=== PATIENT | female | born 1970 | race Caucasian/White ===

== ENCOUNTER → 2017-05-14 11:30 | Outpatient (CLI) | payer SELFPAY ==
[2017-05-17 14:28] LABS: HPV Reflexed? NOT INDICATED
== END ==
PROVIDERS: Visit Provider Obstetrics & Gynecology
DX: Z12.4 Encounter for screening for malignant neoplasm of cervix (principal)
CPT/HCPCS: 88175; G0145

== ENCOUNTER → 2019-07-22 08:58 | Outpatient (CLI) | payer SELFPAY ==
[2019-07-24 20:41] LABS: HPV Reflexed? NOT INDICATED
== END ==
PROVIDERS: Referring Provider Obstetrics & Gynecology; Visit Provider Obstetrics & Gynecology
DX: Z12.4 Encounter for screening for malignant neoplasm of cervix (principal)
CPT/HCPCS: 88175; G0145

== ENCOUNTER → 2019-12-03 15:30 | Outpatient (CLI) | payer SELFPAY, OTHER ==
--- NOTE | 2019-12-03 15:31 | MRI_ITS ---
STUDY: MRI CERVICAL SPINE WITHOUT CONTRAST REASON FOR EXAM: Female, 49 years old. neck pain and stiffness pain and tingling into both arms TECHNIQUE: Standardized fat and water weighted pulse sequences were obtained in the sagittal and axial planes. COMPARISON: Cervical spine films 11/23/2019 FINDINGS: Normal foramen magnum and brainstem-cervical cord junction. Normal craniovertebral junction. Normal anterior atlantoaxial articulation. Normal odontoid process. Normal cervical lordosis. Normal vertebral bodies and posterior osseous elements. C2-3: Normal endplates. Normal disc height, signal and morphology. Normal central canal and intervertebral neural foramina. C3-4: Normal endplates. Normal disc height, signal and morphology. Normal central canal and intervertebral neural foramina. C4-5: Normal endplates. Normal disc height, signal and morphology. Normal central canal and intervertebral neural foramina. C5-6: Normal endplates. Normal disc height, signal and minor bulging of the disc with small right posterolateral/foraminal disc protrusion. Mild narrowing of the central canal with mild impingement upon ventral surface of the cord. Severe right neuroforaminal stenosis and moderate stenosis on the left secondary to disc disease and bony hypertrophy. C6-7: Minor endplate spurring.. Normal disc height, signal and minor bulging disc osteophyte complex.. Minor narrowing of central canal and impingement upon the cord. Normal bilateral neuroforamina C7-T1: Normal endplates. Normal disc height, signal and morphology. Normal central canal and intervertebral neural foramina. Normal cervical cord. Normal visualized soft tissue structures. MRI/Spine Cervical (Routine) IMPRESSION: No evidence for acute fracture or other significant bony pathology Mild spondylosis most pronounced at C5-6 where there is spinal stenosis mild impingement upon the cord secondary to disc disease and bony hypertrophy.. Minor narrowing of the central canal and impingement upon the cord at C6-7 secondary to minor bulging disc osteophyte complex Electronically Signed: Jah Rodas MD at 21:17 EDT , Service support ,
--- NOTE | 2019-12-03 15:31 | MRI_ITS ---
STUDY: MRI LUMBAR SPINE WITHOUT CONTRAST REASON FOR EXAM: Female, 49 years old. back pain and stiffness pain and tingling into both legs TECHNIQUE: Standardized fat and water weighted pulse sequences were obtained in the sagittal and axial planes. COMPARISON: None FINDINGS: T11-12 there is narrowing of T11-12 disc space with desiccation of disc and disc protrusion narrowing the central canal and mildly compressing the cord only seen on sagittal views. T12-L1: Normal endplates. Normal disc height, hydration and morphology. Normal bilateral facet joints. Normal central canal and bilateral lateral recesses. Normal bilateral intervertebral neural foramina. Normal lumbar lordosis. There is no substantial scoliosis. Normal conus medullaris that terminates at T12-L1 L1-2: Normal endplates. Normal disc height, hydration and morphology. Normal bilateral facet joints. Normal central canal and bilateral lateral recesses. Normal bilateral intervertebral neural foramina. L2-3: Normal endplates. Normal disc height, hydration and morphology. Normal bilateral facet joints. Normal central canal and bilateral lateral recesses. Normal bilateral intervertebral neural foramina. L3-4: Normal endplates. Normal disc height, hydration and morphology. Normal bilateral facet joints. Normal central canal and bilateral lateral recesses. Normal bilateral intervertebral neural foramina. L4-5: Normal endplates. Normal disc height, desiccation and minor annular bulge with small left foraminal disc protrusion.. Mild bilateral facet arthropathy and thickening of ligamenta flava.. Normal central canal and bilateral lateral recesses. Mild right neuroforaminal stenosis and moderate narrowing on the left secondary to disc and bony hypertrophy L5-S1: Normal endplates. Normal disc height, hydration and morphology. Normal bilateral facet joints. Normal central canal and bilateral lateral recesses. Normal bilateral intervertebral neural foramina. Normal visualized sacral ala. Normal visualized paraspinous soft tissue structures. MRI/Spine Lumbar (Routine) IMPRESSION: No evidence for acute fracture or subluxation. Spinal stenosis at L4-5 greater on the left secondary to minor annular bulge and small left foraminal disc protrusion with facet arthropathy. Spinal stenosis and cord compression at T11-12 secondary to disc protrusion only visualized on sagittal images.. Dedicated MRI of the thoracic spine would be useful for further assessment if clinically warranted Electronically Signed: Jah Rodas MD at 18:03 EDT , Service support ,
== END ==
PROVIDERS: PCP Family Medicine; Referring Provider Orthopaedic Surgery; Visit Provider Orthopaedic Surgery
DX: M54.9 Dorsalgia, unspecified (principal); M54.2 Cervicalgia
CPT/HCPCS: 72141; 72148

== ENCOUNTER 2020-01-07 12:32 | Inpatient (IN) | payer SELFPAY, OTHER ==
--- NOTE | 2019-12-30 10:16 | EKG12_ITS ---
Test Reason : PRE OP Blood Pressure : / mmHG Vent. Rate : 081 BPM Atrial Rate : 081 BPM P-R Int : 126 ms QRS Dur : 074 ms QT Int : 392 ms P-R-T Axes : -08 007 -03 degrees QTc Int : 455 ms Normal sinus rhythm Low voltage QRS Borderline ECG Confirmed by JOLENE WHALEN, MARCO ([id number]), society editor MERCEDEZ MARTEL ([id number]) on 01/01/2020 11:10:34 AM Referred By: Ender Haney Confirmed By:MARCO FERNÁNDEZ MD
[2019-12-30 10:42] LABS: Absolute Lymphocyte Count 4.98 X10^3/uL (0.83-4.51); Absolute Neutrophil Count 7.9 X10^3/uL (2.0-7.7); Basophil% 0.7 % (0-1); Eosinophil# 0.32 X10^3/uL; Eosinophils% 2.2 % (0-5); Hematocrit 44.9 % (37-47); Hemoglobin 14.7 g/dL (12.0-15.0); Lymphocyte # 4.98 X10^3/ul (4.0); Lymphocyte % 34.3 % (19-41); Mean Corp Hgb Conc 32.7 g/dL (32-36); Mean Corpuscular Hgb 28.3 pg (27.0-32.0); Mean Corpuscular Volume 86.5 fL (81-99); Monocyte# 0.99 X10^3/uL; Monocyte% 6.8 % (0-10); NRBC Flagged by Analyzer 0 % (0-5); Neutrophil # 7.94 X10^3/uL (2.7-7.7); Neutrophil % 54.8 % (47-70); Platelet Count 352 K/mm3 (150-450); RBC Distribution Width CV 12.9 % (11.6-14.6); RBC Distribution Width SD 40.5 fl (35.1-43.9); Red Blood Count 5.19 M/mm3 (4.2-5.4); White Blood Count 14.5 K/mm3 (4.4-11.0)
[2019-12-30 11:06] LABS: Anion Gap 6 (5-15); BUN 13 mg/dL (7-18); BUN/Creat Ratio 16.8 RATIO (10-20); Calcium,Total 9.2 mg/dL (8.5-10.1); Chloride 102 mmol/L (98-107); Creatinine, Serum 0.77 mg/dL (0.55-1.02); EST Glomerular Filtration Rate 84 mL/min (>60); Est Glom Filt Rate - Afr Amer 102 mL/min (>60); Glucose 78 mg/dL (74-106); Potassium 3.4 mmol/L (3.5-5.1); Sodium Level 137 mmol/L (136-145)
[2019-12-30 11:07] LABS: Magnesium 2.3 mg/dL (1.6-2.6)
[2019-12-30 11:37] LABS: HIV - WCH Non-Reactive (Nonreactive)
[2019-12-31 05:07] LABS: HEPATITIS B SURFACE AG Negative (Negative); Hepatitis A AB, Total Negative (Negative); Hepatitis A IgM Antibody Negative (Negative); Hepatitis B Core AB IgM Negative (Negative); Hepatitis B Core Ab Total Negative (Negative); Hepatitis C Ab <0.1 s/co ratio (0.0-0.9)
[2019-12-31 12:59] LABS: Hep B Surface Antibodies Non Reactive (.)
[2020-01-07] VITALS (10 sets, daily range): BP systolic 126–156; BP diastolic 60–90; PULSE 85–98; RESP 16–18; TEMP 36.4–37.2; O2SAT 90–98; BMI 43.5; BMI 43.3
--- NOTE | 2020-01-07 06:00 | HP_ITS ---
Intake Intake Visit Reasons: Neck pain Is patient in pain?: Yes Allergies No Known Allergies Allergy (Verified 12/16/19 08:56) Medications NK 12/09/19 [History Confirmed 12/09/19] HPI Neck pain: Details: Parts of this documentation were recorded by a scribe, this documentation accurately reflects the service provided and the decisions made by me, Dr. Ender Haney, DO 12/16/19 0852. ALICJA PAREKH is a 49 year old F here today for cervical spine followup. Patient states that she continues to have cervical spine pain. She has radiating pain into her right arm. She denies any recent injuries. Patient would like to discuss her surgical options. She has numbness into her right arm. ALEJANDRA Sarabia returns for follow-up in the company of her . She has decided that she wishes to proceed with surgical intervention. She states that she is tired of living the way she is with the pain in the right side of her neck that goes down the right shoulder and down the right arm in a C6 dermatome. Her Gilberto agrees that she is ready to proceed as the chronic pain has been a strain on her. I discussed the surgery at length with her and Gilberto. I explained the surgery itself would take approximately 3 hours and that she would spend 1 night in the hospital. I answered all their questions and in addition I explained to them how the surgery would be done in layman's terms. She is also aware that she needs to be here 1 week before the actual surgery for further questioning and prepare her for a lab etc. I will see her at that time ROS ENT Reports neck pain Musc Reports neck pain, Reports numbness, Reports radiating pain into limb, Reports tingling Skin/Breast Reports system reviewed and no additional complaints, except as docu Neuro Yes system reviewed and no additional complaints, except as docu, Yes numbness, Yes tingling Assessment & Plan 1. Neck pain M54.2 Coding Level of Care Code Off vis,est,level 2 Diagnoses Neck pain M54.2 Time Spent (min) 20
[2020-01-07] MEDS: Acetaminophen 500 MG Tablet 1000 MG PO (09:28)
[2020-01-07 09:56] LABS: Bedside Glucose 168 mg/dL (70-110)
--- NOTE | 2020-01-07 11:00 | DISC_PTH ---
PATIENT: ALICJA PAREKH LOC: [facility] U#:[id number] AGE/SX: 49/F ROOM: UT322 RE01/07/[address]: Dr. Nicolas Wong MD : 1970 BED: 1 DIS: 01/08/2020 SPEC #: [id number] RECD: 01/08/20 10:54 STATUS: BAL REOrly #: [id number] DARA: 01/07/20 11:[address]: Ender Haney DEPT: SURGICAL PATHOLOGY RECD BY: Kayla Garcia ENTERED: 01/08/20 12:21 SP TYPE: DISC OTHR DR: MD Dr. Ender Clements DO Dr. Nicholas F Kotsonis, MD Dr. Zachary Boyd, MD Tissues: Intervertebral disc, NOS Procedures: Surgery Specimen Level III Comments: @ Ordering doctor for SUIII edited from to @ daisy PETTY at 01/08/20 1348 @ Submitting doctor edited from to @ by JOVANNY at 01/08/20 1348 HEADER OPERATION: Anterior cervical fusion C5-6 PRE-OP DIAGNOSIS: Herniated disc C5-6 TISSUE SUBMITTED: Disc MICROSCOPIC DIAGNOSIS Herniated disc, C5-6, discectomy: Degenerative and reparative change. AM:pablo 01/11/20 MICROSCOPIC DESCRIPTION Slides are reviewed. GROSS DESCRIPTION Received in fixative is one container labeled with the patient's name and designated disc. The specimen consists of multiple indurated pieces of jorgensen-pink tissue measuring in aggregate 4 x 3 x 0.3 cm. The entire specimen is submitted in two cassettes. / SJ:pablo 01/08/20 TC:5 CPT: 40534
[2020-01-07] MEDS: Cefazolin 2 GM in 0.9% Normal Saline 100 ML IV (12:56)
[2020-01-07] MEDS: Heparin 10,000 UNITS/10 ML Vial 10000 UNITS (13:04)
--- NOTE | 2020-01-07 14:00 | RAD_ITS ---
STUDY: X-RAY - CERVICAL SPINE REASON FOR EXAM: Female, 49 years old. ANTERIOR CERVICAL FUSION C5-C6 TECHNIQUE: 4 view(s) of the cervical spine were obtained. COMPARISON: 03 December 2019 FINDINGS: Intraoperative views were performed with the patient is orally intubated. Surgical hardware bartlett C5-C6 disc level with placement of C5-C6 ACDF and disc spacer. RAD/Cerv Spine 2 or 3 Views IMPRESSION: Intraoperative imaging of C5-C6 ACDF. Electronically Signed: Bryant Mendez, at 20:45 EDT Tel , Service support ,
--- NOTE | 2020-01-07 17:41 | PCM.OPRPT ---
Report of Operation Date of Procedure: 01/07/20 Description of Surgical Findings:: Preoperative diagnosis: Deviated disc C5-6 with severe right C6 radiculopathy. #2 large anterior spur covering the C5-6 disc space Postoperative diagnoses: Same Procedure: #1 corpectomy C6 includes removal of large anterior spur #2 anterior cervical fusion C5-6 #3 insertion of cervical titanium cage #4 anterior spine plate C5-C6 #5 bone marrow aspirate right iliac crest Surgeon: Dr. Haney assistant professor of mathematics: Matt DURAND Estimated blood loss was less than 30 cc +60 cc taken of bone marrow aspirate Anesthesia: [facility] Drains: 1/4 inch Magdiel Complications: None Patient was taken to the OR where she was placed in the supine position on the operating table she was then placed under general endotracheal anesthesia. It took a long time to properly position her because of her body habitus. To the right iliac crest we had to cure the abdomen toward the left and also pull her skin and breasts down toward the the foot of the OR table in order to give us room without folds in her neck. In addition she had a very short neck. I then took a preoperative x-ray with a a marker in place so that I would know her to start the incision the incision was to be started just above the clavicle. The neck and right crest were then prepped and draped in standard fashion and made a transverse incision in the midline just above the clavicle in line with longer's lines. Subcutaneous tissues were incised the length of the skin incision. I then elevated the the subcutaneous tissues off of the platysma in a cephalad and caudad direction. Self-retaining retractor was put in place I then split split the platysma longitudinally using scissor dissection began opening the the fascial planes first I exploited the superficial cervical fascia to go around the strap muscles one of the strap muscles I had to gently split in line with its fibers in order to get to the C5-6 space. The carotid was protected throughout this part of the procedure. Then found the very large spur noted this per started at the top of the C5 vertebra and went all the way down to well below the C5-6 interspace. Just about where the space would be. Using a chrystal bur a bur to a hole in the midline hoping to be near the disc space and it turns out that we were we were able to put a needle into the disc space and then took an intraoperative x-ray to confirm that we were at C5-6 which we were. We then put the self-retaining blacksmith assistant retractors in place giving us good access to the entire large spur. Using a chrystal bur I then slowly burred away the spur down to where I thought would be the anterior portion of the vertebral bodies underneath. Then identify the disc space and was able to start removing disc from within the disc space. Using pituitary rongeurs I removed a lot of the disc. I then used curettes of different sizes to start removing the remaining disc all the way back to the posterior longitudinal ligament. I also use this to remove the cartilage off the endplates the bottom of C5 the bottom of C6. Then use the chrystal bur to remove portion of the C6 vertebra on top and removing the remaining large spur. Once this was done we thoroughly irrigated irrigated with copious amounts of sterile saline I then removed the uncinate process from the right side and found the tear in the annulus where the disc had come out I then was able to remove the disc with nerve hooks and free fragments were removed. Completely freed up the C6 nerve root on the right side. This was done I then used a rasp to to roughen up the bottom of C5 took her measurements for the cage appropriate cage was used. Then filled the center of the cage with sponge allograft bone that was soaked in the patient's own stem cells. Note that earlier we made a puncture incision over the right ASIS using a Jamshidi needle to remove 60 cc of bone marrow aspirate. Was then spun down by the microbiology lab technician in the room concentrated and given back to us. We soaked the sponge allograft that went in the cage and the concentrated stem cells these were concentrated between 8 and 10 times. Then tamped the cage into place and countersunk at 3 mm. Appropriate size plate was then used across the divide. It was centered in the first of 4 holes punched in with an all in the 14 mm screws inserted to into C5 to into the bottom of C6. Intraoperative x-ray was taken demonstrate excellent position of the plate the screws in the cage. We then placed a amniotic graft directly over the plate to prevent adhesions to the surrounding tissues such as the trachea and the esophagus especially. 1/4 inch [place] drain was inserted and closure was begun. We closed the platysma running fashion with 5-0 Vicryl. We then followed up with 5-0 Vicryl for the subcutaneous tissues. This approximated the skin and no need for outside stitches was necessary. Sterile dressings were then applied she was then recovered in the OR she was then taken moved to her hospital bed and taken to recovery in satisfactory condition.
[2020-01-07] MEDS: dexAMETHasone 4 MG/ML Vial IV (18:25)
--- NOTE | 2020-01-07 19:18 | PCM.CONS.GEN ---
Problem List (1) Neck pain Status: Acute Reason for Consult Date of Consultation: 01/07/20 Reason for Consultation: Medical management History of Present Illness: The patient is a 49 year old F significant history of hypertension; tachycardia status post ablation; morbid obesity; Deviated disc C5-6 with severe right C6 radiculopathy and large anterior spur covering the C5-6 disc space s/p anterior cervical fusion postop day 0 for which internal medicine service has been consulted for medical management. Patient reports of feeling groggy after surgery and with right scapular soreness. Past Medical History Medical History: Medical History (Last Updated 01/07/20 @ 19:[address] Will Roe MD) HTN (hypertension) (Chronic) I10 Allergies No Known Allergies Allergy (Verified 12/30/19 09:04) Home Medications: Ambulatory Orders Medication Instructions Recorded Diazepam [Valium] 2.5 mg PO PRN PRN 12/23/19 Metoprolol Succinate [Toprol Xl] 25 mg PO DAILY 12/23/19 Potassium Chloride 20 meq PO BID 12/23/19 Triamterene 37.5MG/Hctz 25MG 1 cap PO DAILY 12/23/19 [Dyazide (G)] Cholecalciferol (VIT D3) [Vitamin 1,000 unit PO DAILY 12/24/19 D] Vinpocetine 1 tab PO DAILY 12/24/19 hydrocodone 7.5 mg-acetaminophen 1 tab PO Q6H PRN #30 tab 12/30/19 325 mg tablet Omeprazole [Prilosec] 20 mg PO DAILY 01/07/20 Surgical History: appendectomy, cholecystectomy, hysterectomy, - - Cyst removed from back Smoking Status: Never smoker Tobacco Use: Non-smoker - *Family History Maternal History Items: Cancer, Diabetes Paternal History Items: Heart Disease Review of Systems Constitutional: Denies: Chills, Fever, Weight Change HEENT: Denies: Head Aches, Sinus Congestion, Sinus Drainage Cardiovascular: Denies: Chest Pain, Palpitations Respiratory: Denies: Cough, Shortness of breath at rest, Sputum production Gastrointestinal: Denies: Abdominal Pain, Nausea, Vomiting Genitourinary: Denies: Dysuria Musculoskeletal: Reports: Neck Pain, Shoulder Pain. Denies: Joint Pain, Joint Tenderness Skin: Denies: Rash, Wounds Neurological: Denies: Numbness, Tingling, Focal weakness Psychiatric: Denies: Anxiety, Depression, Homicidal Ideations, Suicidal Ideations Hematologic/ Lymphatic: Denies: Easy Bruising, Easy Bleeding Patient Problems: Active and Suspected Problems Neck pain (Acute) - Physical Exam Vitals/I&O's: Vital Signs Temp Pulse Resp BP Pulse Ox 97.7 F L 90 16 142/60 H 96 01/07/20 18:53 01/07/20 18:53 01/07/20 18:53 01/07/20 18:53 01/07/20 18:53 Oxygen Flow Rate (L/min) 6 Oxygen Delivery Method Simple Mask Weight: 101.2 kg Body Mass Index (BMI) 43.5 Intake and Output for Last 24 Hours 01/05/20 01/06/20 01/07/20 23:59 23:59 23:59 Intake Total 216 / 216 Output Total 300 / 300 Balance -84 / -84 General: Alert, Oriented x3, Cooperative HEENT: Atraumatic, PERRLA, EOMI, Normocephalic Neck: Supple, No JVD, Negative Carotid Bruits, - - Cervical collar in place Lungs: Clear to auscultation, Normal air movement, No rhonchi, No wheeze, No rales, - - Bloodstained dressing on upper chest. Cardiovascular: Regular rate, Regular Rhythm, Normal S1, Normal S2, No murmurs Abdomen: Bowel Sounds Present, Soft, Non Tender Extremities: No edema, Capillary Refill Less than 3 Seconds Skin: - - Erythema on the sacral coccygeal area. Musculoskeletal: No Tenderness to Palpation of Joints or Extremities Neurological: Cranial nerves II-XII grossly intact Psych/Mental Status: Normal Affect, Appropriate Laboratory Results 01/07/20 09:35: POC Glucose 168 H Current Medications Dexamethasone Sodium Phosphate (Dexamethasone 4 Mg/Ml Vial) 2 mg IV Q6 [facility] Stop: 01/08/20 12:01 Dexamethasone Sodium Phosphate (Dexamethasone 4 Mg/Ml Vial) 4 mg IV Q6 [facility] Stop: 01/08/20 00:01 Last Admin: 01/07/20 18:25 Dose: 4 mg Documented by: Enteral Nutritional Formula (Ensure Surgery 237 Ml Liquid) 237 ml PO TIDCM [facility] Famotidine (Famotidine 20 Mg Tablet) 20 mg PO BID [facility] Lactated Ringer's () 1,000 mls @ 100 mls/hr IV .Q10H [facility] Cefazolin Sodium () 1 gm in 50 mls @ 100 mls/hr IV Q8H [facility] Stop: 01/08/20 05:29 Morphine Sulfate (Morphine 4 Mg/Ml Syringe) 2 - 4 mg IV Q2H PRN PRN PRN Reason: Pain Score 6-10 Morphine Sulfate (Morphine 2 Mg/Ml Syringe) 2 - 4 mg IV Q2H PRN PRN PRN Reason: Pain Score 6-10 Ondansetron HCl (Ondansetron 4 Mg/2 Ml Vial) 4 mg IV Q8H PRN PRN PRN Reason: NAUSEA Senna/Docusate Sodium (Senna/Docusate Sodium 1 Tablet) 2 tablet PO BID [facility] Sodium Chloride (0.9% Nacl Peripheral Flush Adult/Peds) 5 - 15 ml IV UD PRN PRN Reason: SALINE FLUSH Assessment/Plan All Active Problems Neck pain (Acute) Deviated disc C5-6 with severe right C6 radiculopathy; and large anterior spur covering the C5-6 disc space S/P: #1corpectomy C6 includes removal of large anterior spur #2 anterior cervical fusion C5-6 #3 insertion of cervical titanium cage #4 anterior spine plate C5-C6 #5 bone marrow aspirate right iliac crest On perioperative treatment with cefazolin. On dexamethasone; diazepam and morphine as needed. Antiemetics and bowel protocol in place. Management by primary. Hypertension Blood pressure is not within goal Metoprolol and Triamterene/HCTZ continued Blood pressure and adjust blood pressure medications. GERD On Pepcid Morbid obesity: BMI 43.3 kg/m?. Complicates care. Lifestyle modification recommended. Erythema on sacrococcygeal area Calmoseptine cream ordered. DVT Prophylaxis SCD and TARAS hose in place Thank you for your consult. Internal medicine service will continue to follow. Office Visits / Consults: [id number] IP Consult L2
[2020-01-07] MEDS: Lactated Ringers 1,000 ML 100 ML IV (19:39)
[2020-01-07] MEDS: Ensure Surgery 237 ML LIQUID PO (19:39)
--- NOTE | 2020-01-07 20:45 | CPS ---
Patient sleeping at this time Incentive Spirometer placed in room
[2020-01-07] MEDS: Menthol/Lanolin/Calamine/Znox 113 GM Tube 1 APPLIC TOPICAL (21:47)
[2020-01-07] MEDS: Cefazolin 1 GM/50 ML BAG IV (21:47)
[2020-01-07] MEDS: Famotidine 20 MG Tablet PO (21:48)
[2020-01-07] MEDS: Senna/Docusate Sodium 1 Tablet 2 TABLET PO (21:48)
[2020-01-08] MEDS: dexAMETHasone 4 MG/ML Vial IV (00:05)
[2020-01-08] MEDS: Morphine 2 MG/ML Syringe IV (00:05)
[2020-01-08 03:45] VITALS: BP 144/77; PULSE 90; RESP 18; TEMP 36.8; O2SAT 96
[2020-01-08] MEDS: Cefazolin 1 GM/50 ML BAG IV (04:00)
[2020-01-08] MEDS: dexAMETHasone 4 MG/ML Vial 2 MG IV ×2 (05:13→12:44)
[2020-01-08 08:55] VITALS: BP 131/61; PULSE 81; RESP 18; TEMP 36.8; O2SAT 97
--- NOTE | 2020-01-08 09:35 | PN_ITS ---
Patient Problems: Active and Suspected Problems (Last Updated 01/07/20 @ 19:[address] Will Roe MD) Neck pain (Acute) Subjective: Doing well, no issues overnight. She did undergo surgery yesterday and is feeling better today. She denies any right upper extremity pain which was where she was most symptomatic Vitals/I&O's: Vital Signs Temp Pulse Resp BP Pulse Ox 98.3 F 90 18 144/77 H 96 01/08/20 03:45 01/08/20 03:45 01/08/20 03:45 01/08/20 03:45 01/08/20 03:45 Oxygen Flow Rate (L/min) 3 Oxygen Delivery Method Room Air Weight: 221 lb 12.56 oz Body Mass Index (BMI) 43.3 Intake and Output for Last 24 Hours 01/06/20 01/07/20 01/08/20 23:59 23:59 23:59 Intake Total 479.33 / 479.33 151.75 / 151.75 Output Total 300 / 300 600 / 600 Balance 179.33 / 179.33 -448.25 / -448.25 General: Alert, Oriented x3, Cooperative, No apparent distress HEENT: Atraumatic, PERRLA, EOMI, Normocephalic Oral: Moist Mucosa Neck: Supple, No JVD Lungs: Clear to auscultation, Normal air movement, No rhonchi, No wheeze, No rales Cardiovascular: Regular rate, Regular Rhythm, Normal S1, Normal S2, No murmurs Abdomen: Soft, Non Tender, Non-Distended, No Hepato-splenomegaly Extremities: No edema, Capillary Refill Less than 3 Seconds Skin: Incision - Dressing on the chest is clean dry and intact Neurological: Neuro grossly intact, Sensory exam intact to light touch and pain Psych/Mental Status: Normal Affect, Appropriate Laboratory Results 01/07/20 09:35: POC Glucose 168 H Current Medications Calamine/Phenol (Menthol/Lanolin/Calamine/Znox 113 Gm Tube) 1 applic TOPICAL BID [facility]; Protocol Last Admin: 01/07/20 21:47 Dose: 1 applicatio Documented by: Dexamethasone Sodium Phosphate (Dexamethasone 4 Mg/Ml Vial) 2 mg IV Q6 [facility] Stop: 01/08/20 12:01 Last Admin: 01/08/20 05:13 Dose: 2 mg Documented by: Diazepam (Diazepam 5 Mg Tablet) 2.5 mg PO PRN PRN PRN Reason: ANXIETY Enteral Nutritional Formula (Ensure Surgery 237 Ml Liquid) 237 ml PO TIDCM [facility] Last Admin: 01/07/20 19:39 Dose: 237 ml Documented by: Famotidine (Famotidine 20 Mg Tablet) 20 mg PO BID [facility] Last Admin: 01/07/20 21:48 Dose: 20 mg Documented by: Metoprolol Succinate (Metoprolol(Xl)Succ 25 Mg Tablet) 25 mg PO DAILY [facility] Morphine Sulfate (Morphine 4 Mg/Ml Syringe) 2 - 4 mg IV Q2H PRN PRN PRN Reason: Pain Score 6-10 Morphine Sulfate (Morphine 2 Mg/Ml Syringe) 2 - 4 mg IV Q2H PRN PRN PRN Reason: Pain Score 6-10 Last Admin: 01/08/20 00:05 Dose: 2 mg Documented by: Ondansetron HCl (Ondansetron 4 Mg/2 Ml Vial) 4 mg IV Q8H PRN PRN PRN Reason: NAUSEA Pantoprazole Sodium (Pantoprazole Sodium 20 Mg Tablet) 20 mg PO DAILY [facility] Senna/Docusate Sodium (Senna/Docusate Sodium 1 Tablet) 2 tablet PO BID [facility] Last Admin: 01/07/20 21:48 Dose: 2 tablet Documented by: Sodium Chloride (0.9% Nacl Peripheral Flush Adult/Peds) 5 - 15 ml IV UD PRN PRN Reason: SALINE FLUSH Sodium Chloride (0.9% Saline Lock 10 Ml Syringe) 10 - 40 ml IV UD PRN PRN Reason: SALINE FLUSH Triamterene/HCTZ (Triamterene 37.5mg/Hctz 25mg Capsule) 1 cap PO DAILY [facility] Medical Necessity - Tobacco Use Smoking Status: Never smoker Tobacco Use: Non-smoker Assessment/Plan All Active Problems (Last Updated 01/07/20 @ 19:[address] Will Roe MD) Neck pain (Acute) 1. Deviated disc at C5-C6 with severe right C6 radiculopathy status post C5-C6 fusion -Postop day 1, doing well. -Stable for discharge from medical perspective -Pain management per primary 2. HTN/morbid obesity -Resumed her metoprolol and her hydrochlorothiazide and triamterene today -Blood pressures have been stable in the 140s to 150s -BMI is 43, recommend lifestyle modifications 3. GERD -Stable -Continue with PPI DVT: SCDs Inpatient E&M: [id number] Subs Hosp L2
[2020-01-08 09:42] VITALS: O2SAT 96
[2020-01-08] MEDS: Menthol/Lanolin/Calamine/Znox 113 GM Tube 1 APPLIC TOPICAL (09:44)
[2020-01-08] MEDS: Famotidine 20 MG Tablet PO (09:48)
[2020-01-08] MEDS: Senna/Docusate Sodium 1 Tablet 2 TABLET PO (09:48)
[2020-01-08 09:53] VITALS: BP 131/61; PULSE 81
[2020-01-08] MEDS: Metoprolol(XL)Succ 25 MG Tablet PO (09:53)
[2020-01-08] MEDS: Pantoprazole Sodium 20 MG Tablet PO (09:53)
[2020-01-08] MEDS: Ensure Surgery 237 ML LIQUID PO ×2 (10:02→12:44)
--- NOTE | 2020-01-08 10:40 | CASEMGMT ---
RN CM Face to Face with patient for initial transition planning/care coordination assessment. RN CM introduced self and role at [facility]. Patient sitting in chair, alert and oriented. Patient willing to participate in assessment and is able to answer all questions appropriately. Care providers, pharmacy, and demographics verified. Patient wishes to discharge home, denies need for home health at this time. Patient states she has no further needs or concerns at this time. CM to follow for discharge planning needs that may arise. PCP: Wilian Specialists: [facility] spinal surgeon Preferred [facility]acy: [facility] Insurance: [employer] Prescription Benefit: none Living Will/HPOA: none LNOK: Living Arrangements: Patient lives with in a 2 story home with bed and bath on first floor. Patient states she was independent at home prior to surgery. Patient states can assist with care at home if needed. Transportation: Driving service DME/HHC: Patient states she has cane at home. Patient denies previous HHC. Disposition Plan: Patient to discharge home with family support and follow-up plans in place. Clarisse YAÑEZ, RN, CM
[2020-01-08] MEDS: Triamterene 37.5MG/Hctz 25MG Capsule 1 CAP PO (12:43)
[2020-01-08] MEDS: 0.9% NaCl Peripheral Flush Adult/Peds IV (12:44)
--- NOTE | 2020-01-08 14:36 | DCINST_ITS ---
Discharge Diet: No Restrictions Discharge Activity: Return to Normal Activity Call your doctor if your incision/area has: Continuous Slow Oozing, Sudden Increased Bleeding, Increased Pain/ Swelling, Increased Redness, Foul Smelling Discharge Call your doctor if you observe: Fever of 101 or Higher, Coldness, Increased Pain, Numbness or Tingling, Change in Color Allergies/Adverse Reactions: Allergies No Known Allergies Allergy (Verified 12/30/19 09:04) Medications to take at Discharge Diazepam [Valium] 2.5 mg PO QHS PRN 12/23/19 Metoprolol Succinate [Toprol Xl] 25 mg PO DAILY 12/23/19 Potassium Chloride 20 meq PO BID 12/23/19 Triamterene 37.5MG/Hctz 25MG [Dyazide (G)] 1 cap PO DAILY 12/23/19 Cholecalciferol (VIT D3) [Vitamin D3] 1,000 unit PO DAILY 12/24/19 Vinpocetine 1 tab PO DAILY 12/24/19 hydrocodone 7.5 mg-acetaminophen 325 mg tablet 1 tab PO Q6H PRN #30 tab 12/30/19 Omeprazole [Prilosec] 20 mg PO DAILY 01/07/20 Primary Care Physician: Steve Cedeno MD [Primary Care Provider] - Test Results: Test results from this visit will be discussed in further detail at your follow- up appointment, if applicable. Please Follow Up With: Ender Haney DO When: 2 weeks
--- NOTE | 2020-01-08 14:41 | DS.PCM_ITS ---
Discharge Summary Date of Admission: 01/07/20 Date of Discharge: 01/08/20 Summary: Mrs. Hanna mended on 1028 and discharged on 01/08/2020 admitting diagnosis was herniated disc C5-6 with right C6 radiculopathy. The discharge diagnoses are the same. Auscultations 1 hospital she was consulted by for medical management. The date of admission A/C DIF was performed at the C5-6 level. She tolerated the procedure well. Today on postop day #1 the dressing was changed and the drain was removed. The incision is healing well. On examination she is neurologically intact her voice is clear and she has no Barak syndrome. She was given A/C DIF protocol regarding her act ivities. She is to remove the dressing on Saturday and on Saturday she may shower. 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 Is to return to my office in 2 weeks. Discharge she is afebrile is well oriented and understood my instructions. Patient Problems: Active and Suspected Problems (Last Updated 01/07/20 @ 19:[address] Will Roe MD) Neck pain (Acute) - Physical Exam Vitals/I&O's: Vital Signs Temp Pulse Resp BP Pulse Ox 98.3 F 81 18 131/61 H 96 01/08/20 08:55 01/08/20 09:53 01/08/20 08:55 01/08/20 09:53 01/08/20 09:42 Oxygen Flow Rate (L/min) 3 Oxygen Delivery Method Room Air Weight: 221 lb 12.56 oz Body Mass Index (BMI) 43.3 Intake and Output for Last 24 Hours 01/06/20 01/07/20 01/08/20 23:59 23:59 23:59 Intake Total 479.33 / 479.33 451.75 / 451.75 Output Total 300 / 300 1300 / 1300 Balance 179.33 / 179.33 -848.25 / -848.25 Current Medications Calamine/Phenol (Menthol/Lanolin/Calamine/Znox 113 Gm Tube) 1 applic TOPICAL BID ROCKY; Protocol Last Admin: 01/08/20 09:44 Dose: 14 applicatio Documented by: Diazepam (Diazepam 5 Mg Tablet) 2.5 mg PO QHS PRN PRN Reason: ANXIETY Enteral Nutritional Formula (Ensure Surgery 237 Ml Liquid) 237 ml PO TIDCM [facility] Last Admin: 01/08/20 12:44 Dose: 237 ml Documented by: Famotidine (Famotidine 20 Mg Tablet) 20 mg PO BID [facility] Last Admin: 01/08/20 09:48 Dose: 20 mg Documented by: Metoprolol Succinate (Metoprolol(Xl)Succ 25 Mg Tablet) 25 mg PO DAILY [facility] Last Admin: 01/08/20 09:53 Dose: 25 mg Documented by: Morphine Sulfate (Morphine 4 Mg/Ml Syringe) 2 - 4 mg IV Q2H PRN PRN PRN Reason: Pain Score 6-10 Morphine Sulfate (Morphine 2 Mg/Ml Syringe) 2 - 4 mg IV Q2H PRN PRN PRN Reason: Pain Score 6-10 Last Admin: 01/08/20 00:05 Dose: 2 mg Documented by: Ondansetron HCl (Ondansetron 4 Mg/2 Ml Vial) 4 mg IV Q8H PRN PRN PRN Reason: NAUSEA Pantoprazole Sodium (Pantoprazole Sodium 20 Mg Tablet) 20 mg PO DAILY [facility] Last Admin: 01/08/20 09:53 Dose: 20 mg Documented by: Senna/Docusate Sodium (Senna/Docusate Sodium 1 Tablet) 2 tablet PO BID [facility] Last Admin: 01/08/20 09:48 Dose: 2 tablet Documented by: Sodium Chloride (0.9% Nacl Peripheral Flush Adult/Peds) 5 - 15 ml IV UD PRN PRN Reason: SALINE FLUSH Last Admin: 01/08/20 12:44 Dose: 10 ml Documented by: Sodium Chloride (0.9% Saline Lock 10 Ml Syringe) 10 - 40 ml IV UD PRN PRN Reason: SALINE FLUSH Triamterene/HCTZ (Triamterene 37.5mg/Hctz 25mg Capsule) 1 cap PO DAILY [facility] Last Admin: 01/08/20 12:43 Dose: 1 cap Documented by:
[2020-01-08 15:31] VITALS: BP 130/60; PULSE 93; RESP 18; TEMP 36.3; O2SAT 99
== END 2020-01-08 15:59 | disposition home or self-care (01) | DRG 472 ==
LOC: MS3 01-08 07:09
PROVIDERS: Anesthesiology; Admitting Provider Orthopaedic Surgery; PCP Family Medicine; Referring Provider Orthopaedic Surgery; Visit Provider Family Medicine
PROC: 0RG10K0 Fusion of Cervical Vertebral Joint with Nonautologous Tissue Substitute, Anterior Approach, Anterior Column, Open Approach (ICD-10-PCS; CPT 22551; principal; 2020-01-07 10:30)
DX: M50.122 Cervical disc disorder at C5-C6 level with radiculopathy (principal); Z68.41 Body mass index [BMI] 40.0-44.9, adult; Z20.828 Contact with and (suspected) exposure to other viral communicable diseases; G89.29 Other chronic pain; M46.02 Spinal enthesopathy, cervical region; I10 Essential (primary) hypertension; E66.01 Morbid (severe) obesity due to excess calories; K21.9 Gastro-esophageal reflux disease without esophagitis
CPT/HCPCS: 36415; 72040; 80048; 82962; 83735; 85025; 86703; 86704; 86705; 86706; 86708; 86709; 86803; 87081; 87340; 87635; 88304; 93005; 99251; C1713; C9803; J7120; A4216; G0463; U0003

== ENCOUNTER → 2021-08-02 | Outpatient (CLI) | payer OTHER, SELFPAY ==
[2021-08-09 09:20] LABS: HPV Reflexed? NOT INDICATED
== END | disposition home or self-care (01) ==
LOC: LABSPEC 13:56
PROVIDERS: PCP Family Medicine; Referring Provider Obstetrics & Gynecology; Visit Provider Obstetrics & Gynecology
DX: Z12.4 Encounter for screening for malignant neoplasm of cervix (principal)
CPT/HCPCS: 88175; G0145